=== PATIENT | male | born 1955 | race Caucasian/White ===

== ENCOUNTER → 2022-07-21 | Outpatient (CLI) | payer BC, MEDICARE ==
--- NOTE | 2022-07-21 10:10 | Diagnostic Imaging Report ---
HISTORY: Abdominal aortic aneurysm screening. TECHNIQUE: Lawton scale, color Doppler and spectral Doppler ultrasound performed of the aorta. COMPARISON: None FINDINGS: The proximal aorta measures 2.5 x 2.7 cm. The mid aorta measures 1.7 x 2.5 cm. The distal aorta measures 2.0 x 2.0 cm. The iliac arteries are obscured and not visible due to bowel gas. Doppler imaging was unsuccessful due to bowel gas. There is calcific atherosclerosis. IMPRESSION: 1. Borderline ectatic abdominal aorta without aneurysm seen. Dictated by: Dictated on workstation # [id number]
== END ==
LOC: RAD 08:15
PROVIDERS: ATTEND Internal Medicine Cardiovascular Disease
DX: I77.811 Abdominal aortic ectasia (principal); Z72.0 Tobacco use
CPT/HCPCS: 76775

== ENCOUNTER → 2022-07-21 | Outpatient (CLI) | payer BC, MEDICARE, OTHER | LOC: CARD 07:49 | PROVIDERS: ATTEND Internal Medicine Cardiovascular Disease | DX: I25.10 Atherosclerotic heart disease of native coronary artery without angina pectoris (principal) | CPT/HCPCS: 93306 ==

== ENCOUNTER → 2022-08-08 | Outpatient (CLI) | payer BC, MEDICARE ==
[~2022-08-08] MED LIST: CATHETER FLUSH 10 ML SYR IVP PRN; REGADENOSON 0.4 MG/5 ML SYR (LEXISCAN) IV ONE
[2022-08-08 09:43] VITALS: BP 153/93
--- NOTE | 2022-08-10 21:10 | STRESS TEST ---
DATE OF SERVICE: 08/08/2022 RESTING AND POST REGADENOSON TECHNETIUM-99M TETROFOSMIN SPECT CT IMAGING ORDERING PHYSICIAN: Adwoa COLLINS PRIMARY PHYSICIAN: Dr. Trujillo. CLINICAL DIAGNOSIS: Coronary artery disease. Baseline images were carried out after injection of 10.47 mCi technetium-99m tetrofosmin. This was followed by 0.4 mg regadenoson and 29.9 mCi of technetium-99m tetrofosmin for stress imaging. The electrocardiogram showed sinus rhythm at baseline. It did not change significantly with regadenoson infusion. Review of images at rest and following stress does not indicate any distinct perfusion defects consistent with significant myocardial ischemia or infarction. Gated images show normal global left ventricular systolic function with normal regional wall motion. Left ventricular ejection fraction is calculated to be 64%. CONCLUSIONS: 1. No evidence of any significant myocardial ischemia or infarction on this study. 2. Normal regional wall motion. 3. Normal global left ventricular systolic function with a calculated ejection fraction of 64%. Job ID: [id number] DocumentID: [id number] Dictated Date: 08/10/2022 17:34:26 Ironworker Apprentice Date: 08/10/2022 21:09:00 Dictated By: AURELIANO ROSENTHAL MD; ARIES; FACP; FACC;
== END ==
LOC: CARD 07:50
PROVIDERS: ATTEND Nurse Practitioner Family
DX: I25.10 Atherosclerotic heart disease of native coronary artery without angina pectoris (principal)
CPT/HCPCS: 78452; 93017; A9502